=== PATIENT | female | born 1995 | race Caucasian/White ===

== ENCOUNTER → 2022-10-26 | Emergency (ER) | payer MEDICAID, OTHER ==
[~2022-10-26] VITALS: Ht 157.5 cm; Wt 88.0 kg
[~2022-10-26] MED LIST: CEFTRIAXONE 1GM PREMIX 50 ML IV ONE; IOHEXOL-300 100 ML BOTTLE ONE; METRONIDAZOLE 500 MG PREMIX 100 ML IV ONE; SODIUM CHLORIDE 0.9% 1,000 ML IV ONE
[2022-10-26 20:15] LABS: BASOPHILS % 0.7 % (0.0-2.0); HEMATOCRIT. 37.5 % (36.0-48.0); HEMOGLOBIN. 12.8 g/dL (12.0-16.0); LYMPHOCYTES % 25.1 % (20.0-50.0); MEAN CORPUSCULAR HEMOGLOBIN 29.2 pg (28.0-32.0); MEAN CORPUSCULAR VOLUME 85.7 fL (81.0-99.0); MEAN PLATELET VOLUME 9.5 fl (7.4-10.4); MONOCYTES % 3.2 % (2.0-8.0); PLATELET 404 x1000/uL (130-400); RED BLOOD CELL COUNT 4.38 mill/uL (4.2-5.4); RED CELL DISTRIBUTION WIDTH 14.6 % (11.6-14.6)
[2022-10-26 20:23] LABS: HCG SCREEN NEGATIVE
[2022-10-26 20:55] LABS: CHLORIDE 103 mEq/L (98-107)
[2022-10-26 21:07] LABS: CLARITY URINE CLEAR (CLEAR); COLOR URINE YELLOW (YELLOW); KETONES URINE 4+ (NEGATIVE); LEUKOCYTE ESTERASE URINE NEGATIVE (NEGATIVE); NITRITE URINE NEGATIVE (NEGATIVE); OCCULT BLOOD URINE 1+ (NEGATIVE); PH URINE 5.5 (4.5-8.0); PROTEIN URINE 2+ (NEGATIVE); SPECIFIC GRAVITY URINE 1.037 (1.005-1.030); UROBILINOGEN URINE 0.2 E.U./dL (0.2-1.0)
[2022-10-27 15:10] VITALS: BP 106/79
== END ==
LOC: ER 18:54
DX: K85.10 Biliary acute pancreatitis without necrosis or infection (principal); E87.20 Acidosis, unspecified; E86.0 Dehydration; F41.9 Anxiety disorder, unspecified; J45.909 Unspecified asthma, uncomplicated; F32.9 Major depressive disorder, single episode, unspecified; E11.9 Type 2 diabetes mellitus without complications
CPT/HCPCS: 36415; 74177; 76705; 80053; 81003; 81025; 83605; 83690; 84703; 85025; 87040; 96365; 96375; 99285; J0696; J3490; J7030; Q9967; 96361

== ENCOUNTER 2023-03-25 07:42 | Emergency (ER) | payer MEDICAID ==
[~2023-03-25] VITALS: Ht 157.5 cm; Wt 93.0 kg
[2023-03-25 07:45] VITALS: O2SAT 100
[2023-03-25] MEDS ORDERED: TOPUD PO (08:06)
[2023-03-25] MEDS ORDERED: OFLO5DRO4 RIGHT EAR (08:06)
[2023-03-25] MEDS ORDERED: AMOX1TAB16 PO (08:06)
[2023-03-25] MEDS ORDERED: ACETAMINOPHEN 325MG TABLET PO ONE (08:30)
[2023-03-25 08:56] VITALS: BP 133/88; PULSE 98; RESP 18; TEMP 99.8
== END 2023-03-25 08:57 | disposition home or self-care (01) ==
LOC: ER 07:42
DX: H66.91 Otitis media, unspecified, right ear (principal)
CPT/HCPCS: 81025; 99282

== ENCOUNTER 2024-11-15 11:44 | Emergency (ER) | payer MEDICAID, OTHER ==
[~2024-11-15] VITALS: Ht 157.5 cm; Wt 91.0 kg
[~2024-11-15 11:44] MED LIST changes: +AMOX1TAB16 PO; -CEFTRIAXONE 1GM PREMIX 50 ML IV ONE; -IOHEXOL-300 100 ML BOTTLE ONE; -METRONIDAZOLE 500 MG PREMIX 100 ML IV ONE; +OFLO5DRO4 RIGHT EAR; -SODIUM CHLORIDE 0.9% 1,000 ML IV ONE; +TOPUD PO
[2024-11-15 11:58] VITALS: TEMP 36.9
[2024-11-15] MEDS ORDERED: P20 PO (12:29)
[2024-11-15] MEDS ORDERED: IPRA3AMP9 NEB (12:29)
[2024-11-15] MEDS: PREDNISONE 20MG TABLET PO ONE (12:43)
[2024-11-15] MEDS: IPRATROPIUM/ALBUTEROL 0.5-3(2.5)MG/3ML NEB HHN ONE (12:47)
[2024-11-15 13:05] VITALS: PULSE 94; RESP 16; O2SAT 98
[2024-11-15 14:00] VITALS: BP 145/78; PULSE 105; RESP 16; O2SAT 98
== END 2024-11-15 14:04 | disposition home or self-care (01) ==
LOC: ER 11:44
DX: J45.901 Unspecified asthma with (acute) exacerbation (principal); E11.9 Type 2 diabetes mellitus without complications; Z79.52 Long term (current) use of systemic steroids
CPT/HCPCS: 94640; 99283; J7512; Z7610 ×3